=== PATIENT | female | born 1960 | race Caucasian/White ===

== ENCOUNTER 2020-12-26 06:55 | Day surgery (SDC) | payer OTHER ==
[~2020-12-26] VITALS: Ht 165.1 cm; Wt 77.3 kg
--- NOTE | ~2020-12-26 | EKG ---
[facility] [address] [facility] [place], [place] [address] Draft EK completed, results pending confirmation PATIENT NAME: MEG CORTEZ Abena Electrocardiogram DATE OF : 56 PHYSICIAN: PRELIMINARY REPORT #: [id number] REPORT IS CONFIDENTIAL AND NOT TO BE RELEASED WITHOUT AUTHORIZATION
--- NOTE | ~2020-12-26 | OR ---
[facility] [address] [place], [place] [address] Draft DATE OF OPERATION: 12/26/2020 SURGEON: Faisal Cabrera MD PREOPERATIVE DIAGNOSIS: Chronic maxillary sinusitis, suspected foreign body of the right maxillary sinus. POSTOPERATIVE DIAGNOSIS: Chronic maxillary sinusitis, suspected foreign body of the right maxillary sinus plus chronic ethmoiditis. PROCEDURES: 1. Partial ethmoidectomy, right side, endoscopic 32019. 2. Maxillary antrostomy with foreign body removal on the right side, [address]. INDICATIONS: This 60-year-old female had facial trauma decades ago. 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 Endoscopic exam in the office reveals a dark fuzzy objects that look like again fungus ball on that right side. Also from chronic inflammation or infection that maxillary sinus, the ethmoid mucosa was blunted in [place], it was felt that needed to be opened as well for the patient to try and cleanse it better and keep these things from happening. DESCRIPTION OF PROCEDURE: The patient was placed in a supine position, had an orotracheal intubation, was placed under general anesthesia. Preop, intraop, postop photographs were obtained endoscopically. About 2.5 mL of 1% lidocaine, 1:200,000 epinephrine were injected into the remnant of the uncinate process in the middle turbinate and the inferior turbinate. Then, the posterior superior wall was taken down completely opening up into an ethmoid air cell. The rest of the uncinate process was removed. Anterior ethmoid air cells opened until normal mucosa was obtained. With a 70-degree scope, the foreign body could be seen, it was then removed with a sagittally grasping frontal sinus instrument, which nicely curved into the maxillary sinus, this was put in a bottle and given to the patient to take home tissue around that foreign body were gently removed from the lateral inferior wall staying away from ceiling where the infraorbital nerve has been known to give the patient lots of neurogenic pain over the years. Estimated blood losswas about 25 mL. There were no complications. No packing was necessary. The PATIENT NAME: MEG CORTEZ OPERATIVE REPORT DATE OF : 56 REPORT #: [id number] PHYSICIAN: FAISAL CABRERA MD PCP: UNASSIGNED DOCTOR REPORT IS CONFIDENTIAL AND NOT TO BE RELEASED WITHOUT AUTHORIZATION [facility] [address] [place], [place] [address] Draft patient went to recovery room in good condition. The final configuration of the labyrinth was greatly widened, so the patient will be able to cleanse it better with sinus rinses. Faisal Cabrera MD [facility] /[id number] Copies: ~ PATIENT NAME: MEG CORTEZ OPERATIVE REPORT DATE OF : 56 REPORT #: [id number] PHYSICIAN: FAISAL CABRERA MD PCP: UNASSIGNED DOCTOR REPORT IS CONFIDENTIAL AND NOT TO BE RELEASED WITHOUT AUTHORIZATION
--- NOTE | 2020-12-26 10:40 | NUR ---
12/26/20 1040 Ying Dan 1024 PT ARRIVED IN PACU NON RESPONSIVE TO NOXIOUS STIMULI WITH OPA IN PLACE. DRIP PAD CDI UNDER NOSE. 1037 PT REACTIVE. OPA REMOVED.
--- NOTE | 2020-12-26 11:36 | NUR ---
1105: PT RETURNS TO UNIT FROM PACU VIA STRETCHER. AWAKE AND ORIENTED ON ARRIVAL, ANSWERS QUESTIONS APPROPRIATELY. C/O CHEST PAIN AND NAUSEA ON ARRIVAL. EKG ORDERED BY BERTIN SCHNEIDER. VSS, RESP EVEN AND UNLABORED. DENIES RADIATING PAIN. NO DRAINAGE FROM RIGHT NARE NOTED. 1110: EKG PERFORMED BY RESPIRATORY THERAPIST AND COOK DINNER MADE AWARE. NEW ORDERS RECEIVED FOR NAUSEA RX. SAMMiguel A, RN TO CALL MD MARYSOL TO NOTIFY 1125: NAUSEA RX ADMINISTERED. RX ORDER RECEIVED FROM MD MARYSOL FOR NITRO 0.4MG SUBLINGUAL TO BE ADMINISTERED. RN TO CALL BENCH WORKER BINDING IF CHEST PRESSURE PERSISTS DESPITE NITROGLYCERIN ADMIN. 1135: VSS, RESP EVEN AND UNLABORED. NITROGLYCERIN ADMINISTERED ORDERED. PT PLACED ON 5 LEAD. 2[address] OXYGEN IN PLACE VIA NC 1140: PT REPORTS CHEST PRESSURE AND NAUSEA RESOLVING. VSS, RESP EVEN AND UNLABORED. REMAINS ORIENTED. SPO2 STABLE >96% ON 3L VIA NC
--- NOTE | 2020-12-26 11:41 | NUR ---
EKG completed at 1107 EKG handed to SUPERVISOR COAL HANDLING.
--- NOTE | 2020-12-26 11:58 | NUR ---
1158: PT DENIES CHEST PAIN AND PRESSURE AT THIS TIME. VSS, RESP EVEN AND UNLABORED. SPO2 STABLE >99%. PT REPORTS NC IS HURTING HER NOSE. TRIALLED OFF OF O2 AND NC REMOVED. O2 SAT REMAINS STABLE >97% ON RA AT THIS TIME
--- NOTE | 2020-12-26 12:51 | NUR ---
1250-PATIENT SITTING UP IN BED EATING SOUP AT BEDSIDE. PATIENT DENIES CHEST PAIN OR NAUSEA. REPORTS "JUST A LITTLE PAIN TO NOSE" RATES 5/10 AND DENIES PAIN MEDICATION AT THIS TIME. BP 127/67 HR 70, 02-97% RA. CALL LIGHT WITHIN REACH. DENIES NEEDS AT THIS TIME.
--- NOTE | 2020-12-26 13:17 | NUR ---
1230: PT CONTS TO DENY CHEST PAIN/PRESSURE AND NAUSEA, VSS. RESP EVEN AND UNLABORED. O2 SAT STABLE >98% ON RA. NO DRAINAGE FROM RIGHT NARE. DANGLES AT THE BEDSIDE, DENIES DIZZINESS AND SOB. DISCONNECTED FROM 5 LEAD. AMBULATES TO BR WITH STANDBY ASSIST FROM THIS RN. STEADY GAIT. SUCCESSFUL POSTOP VOID, 450ML. BACK TO ROOM 5 AND PLACED BACK ON 5 LEAD, WNL. REG LUNCH TRAY ORDERED. NO FURTHER NEEDS VOICED, CALL LIGHT WITHIN REACH
--- NOTE | 2020-12-26 13:41 | NUR ---
VSS, RESP EVEN AND UNLABORED. O2 SAT STABLE >96% ON RA. DENIES NAUSEA AND CHEST PAIN/ PRESSURE. REPORTS AAMIR PAIN LEVEL. NO DRAINAGE NOTED FROM RIGHT NARE. SCDS AND 5 LEAD REMOVED. PT TO PREPARE FOR D/C
--- NOTE | 2020-12-26 13:57 | NUR ---
1345: D/C INSTRUCTIONS PROVIDED AND DISCUSSED PER HOSPITAL PROTOCOL. ENCGD TO RETURN WITH ANY SYMPTOMS OF CHEST PAIN. PT VOICES UNDERSTANDING AND DENIES QUESTIONS AND CONCERNS AT THIS TIME. SL REMOVED WITH CATH TIP INTACT AND PRESSURE APPLIED TO SITE, WNL. 1350: PT WHEELED OFF OF UNIT BY THIS RN. TRANSFERS INTO VEHICLE INDEPENDENTLY. RESP EVEN AND UNLABORED, NO PHYSICAL S/S OF DISTRESS AT THIS TIME.
--- NOTE | 2020-12-26 15:50 | EKG ---
[facility] [address] [place] [address] Signed Poor data quality, interpretation may be adversely affected Normal sinus rhythm with sinus arrhythmia Possible Left atrial enlargement Incomplete right bundle branch block Borderline ECG When compared with ECG of 26-DEC-2020 11:07, (Unconfirmed) No significant change was found Confirmed by DENA BUSTAMANTE MD ([id number]) on 12/26/2020 3:49:58 PM Electronically Signed By: DENA BUSTAMANTE MD 12/26/20 1550 PATIENT NAME: MEG CORTEZ Electrocardiogram DATE OF : 56 PHYSICIAN: DENA BUSTAMNATE MD REPORT #: [id number] REPORT IS CONFIDENTIAL AND NOT TO BE RELEASED WITHOUT AUTHORIZATION
== END 2020-12-26 13:50 | disposition home or self-care (01) ==
LOC: DS 06:55 → OPS 06:55 → DS 08:15 → OPS 13:50
PROVIDERS: ATTEND Otolaryngology
PROC: 09CQ8ZZ Extirpation of Matter from Right Maxillary Sinus, Via Natural or Artificial Opening Endoscopic (ICD-10-PCS; principal; 2020-12-26 08:15)
DX: J32.0 Chronic maxillary sinusitis (principal); J32.2 Chronic ethmoidal sinusitis; T17.0XXA Foreign body in nasal sinus, initial encounter; X58.XXXA Exposure to other specified factors, initial encounter
CPT/HCPCS: 93005; 93010; J0330; J1100; J1885; J2250; J2405; J2704; J2765; J3010; J7121